=== PATIENT | female | born 1995 | race Caucasian/White ===

== ENCOUNTER 2020-10-01 22:14 | Emergency (ER) | payer BC, SELFPAY ==
--- NOTE | ~2020-10-01 | US_ITS ---
EXAMINATION: US OB <=14 wk fetus w TV EXAM DATE: 10/02/2020 01:10 INDICATION: Vaginal bleeding and cramps in 1st trimester. TECHNIQUE: Pelvic obstetrical transabdominal sonogram was performed by a technologist. There are mu ltiple grayscale and Doppler images available for interpretation. There are no earlier studies of th is gestation for comparison. FINDINGS: Uterus measures 5.8 x 3.5 x 6.0 intrauterine anechoic region probably an early gestation sa c, mean sac diameter of 5 mm corresponding to estimated gestational age 5 weeks 0 days. No pole identified at this time. There is no sonographic evidence of subchorionic hemorrhage. Corpus lute al cyst likely in the left ovary measuring 1.6 x 1.5 x 1.8 cm. Ovarian Doppler flow confirmed bilate rally. IMPRESSION: Early intrauterine gestation sac without pole identified at this time. Consider 1- 2 week follow-up exam. Reviewed, dictated and finalized at location A. [facility] IMPRESSION: Early intrauterine gestation sac without pole identified at this time. Consider 1-2 week follow-up exam.
[2020-10-01 22:20] VITALS: BP 145/79; PULSE 102; RESP 18; TEMP 35.8; O2SAT 100
--- NOTE | 2020-10-01 22:30 | ED.FEMALEGU ---
HPI - Female Genitourinary General Chief complaint: Urogenital-Female <Julien Garcia MD - Last Filed: 10/03/20 23:25> Stated complaint: spotting with <Julien Garcia MD - Last Filed: 10/03/20 23:25> Time Seen by Provider: 10/01/20 22:20 <Julien Garcia MD - Last Filed: 10/03/20 23:25> History of Present Illness HPI Narrative: 24 yo female presents to the ED for vaginal spotting. She reports that she had 3 positive tests last week. She had some cramping yesterday and today she began to have light spotting. No pain currently. Last period was on 08/27/2020. <Julien Garcia MD - Last Filed: 10/03/20 23:25> Related Data Home medications: Home Medications Medication Instructions Recorded Confirmed No Home Medications 10/01/20 <Julien Garcia MD - Last Filed: 10/03/20 23:25> Allergies/Adverse reactions: Allergies Allergy/AdvReac Type Severity Reaction Status Date / Time No Known Allergies Allergy Verified 10/01/20 22:21 <Julien Garcia MD - Last Filed: 10/03/20 23:25> Review of Systems Review of Systems: All systems reviewed & are unremarkable except as noted in HPI and below <Julien Garcia MD - Last Filed: 10/03/20 23:25> Constitutional: Constitutional: Denies chills <Julien Garcia MD - Last Filed: 10/03/20 23:25> Cardiovascular: Cardiovascular: Denies chest pain <Julien Garcia MD - Last Filed: 10/03/20 23:25> Respiratory: Respiratory: Denies dyspnea <Julien Garcia MD - Last Filed: 10/03/20 23:25> Gastrointestinal: Gastrointestinal: Denies abdominal pain, Denies nausea and Denies vomiting <Julien Garcia MD - Last Filed: 10/03/20 23:25> Genitourinary: Genitourinary: Denies nocturia, Denies dysuria and Denies vaginal discharge <Julien Garcia MD - Last Filed: 10/03/20 23:25> Musculoskeletal: Musculoskeletal: Denies back pain <Julien Garcia MD - Last Filed: 10/03/20 23:25> Neurologic: Denies numbness and Denies weakness <Julien Garcia MD - Last Filed: 10/03/20 23:25> Hematologic/Lymphatic: Hematologic/Lymphatic: Denies easy bleeding and Denies easy bruising <Julien Garcia MD - Last Filed: 10/03/20 23:25> [facility] Past Medical History Medical History: Medical History (Updated 10/03/20 @ 00:00 by Background Daemon) Healthy female adult <Julien Garcia MD - Last Filed: 10/03/20 23:25> Social History Social History: Social History Gender identity (if verbalized by the patient): Female Sexual Orientation (if Verbalized by the Patient): Straight or Heterosexual <Julien Garcia MD - Last Filed: 10/03/20 23:25> Exam Const: General: healthy appearing and alert <Julien Garcia MD - Last Filed: 10/03/20 23:25> Nutritional Appearance: obese <Julien Garcia MD - Last Filed: 10/03/20 23:25> Orientation/consciousness: patient oriented x3 <Julien Garcia MD - Last Filed: 10/03/20 23:25> HENMT: Head: normal to inspection <Julien Garcia MD - Last Filed: 10/03/20 23:25> Resp: Effort & Inspection: normal respiratory effort <Julien Garcia MD - Last Filed: 10/03/20 23:25> Auscultation: clear to auscultation bilaterally <Julien Garcia MD - Last Filed: 10/03/20 23:25> Cardio: Rate: regular rate <Julien Garcia MD - Last Filed: 10/03/20 23:25> Rhythm: regular rhythm <Julien Garcia MD - Last Filed: 10/03/20 23:25> GI: GI Palp: Yes Soft to palpation and No Tenderness to palpation present (GI) <Julien Garcia MD - Last Filed: 10/03/20 23:25> Skin: General skin exam: normal color <Julien Garcia MD - Last Filed: 10/03/20 23:25> Neuro: General: patient oriented x3, moves all extremities, no focal motor deficits and CN's II-XI intact bilaterally <Julien Garcia MD - Last Filed: 10/03/20 23:25> Speech: normal speech <Julien Garcia MD - Last Filed: 10/03/20 23:25> Extrem
[2020-10-01 22:56] LABS: Basophils Percent Auto 0.4 % (0.2-1.2); Eosinophils Absolute Auto 0.1 K/mm3 (0-0.3); Eosinophils Percent Auto 1.3 % (0-4.4); Hemoglobin 13.1 g/dL (12.0-15.0); Immature Granulocyte Absolute 0.03 K/mm3 (0.00-0.031); Immature Granulocyte Percent A 0.3 % (0-0.5); Lymphocytes Absolute Auto 2.96 K/mm3 (0.9-3.2); Lymphocytes Percent Auto 31.6 % (18.3-44.2); Mean Corpuscular HGB Conc 33.6 g/dl (32-36); Mean Corpuscular Hemoglobin 29.1 pg (26-34); Mean Corpuscular Volume 86.7 fl (80-100); Mean Platelet Volume 9.5 fl (7.4-10.4); Monocytes Absolute Auto 0.5 K/mm3 (0.1-0.6); Monocytes Percent Auto 5.6 % (2.6-8.5); Neutrophils Absolute Auto 5.7 K/mm3 (1.3-6.7); Neutrophils Percent Auto 60.8 % (45.5-73.1); Platelet Count Result 328 k/mm3 (150-375); Red Cell Distribution Width 13.2 % (11.5-14.5); White Blood Count 9.4 K/mm3 (4.5-10.0)
[2020-10-01 23:08] LABS: Anion Gap 8 mmol/L (8-16); Blood Urea Nitrogen 8 mg/dL (7-17); Calcium 9.2 mg/dL (8.4-10.2); Carbon Dioxide 24 mmol/L (22-30); Chloride 105 mmol/L (98-107); Estimated CRCL calculation 180 ml/min; Estimated Glomerular Filt Rate > 60; Glucose 107 mg/dL (65-105); Potassium 3.9 mmol/L (3.4-5.0); Sodium 137 mmol/L (137-145)
[2020-10-02 02:14] VITALS: BP 128/91; PULSE 82; RESP 16; TEMP 36.6; O2SAT 99
== END 2020-10-02 01:50 | disposition home or self-care (01) ==
PROVIDERS: Emergency Medicine; Emergency Provider Emergency Medicine
DX: O20.0 Threatened abortion (principal); Z3A.01 Less than 8 weeks gestation of pregnancy
CPT/HCPCS: 36415; 76801; 76817; 80048; 81025; 84702; 85025; 85461; 99284

== ENCOUNTER 2020-10-07 09:13 | Outpatient (CLI) | payer BC, SELFPAY | END 2020-10-07 09:14 | disposition home or self-care (01) | PROVIDERS: Visit Provider Obstetrics & Gynecology | DX: O20.0 Threatened abortion (principal); Z3A.00 Weeks of gestation of pregnancy not specified | CPT/HCPCS: 36415; 84702 ==

== ENCOUNTER 2020-10-16 23:01 | Emergency (ER) | payer BC, SELFPAY ==
--- NOTE | ~2020-10-16 | US_ITS ---
EXAMINATION: US OB <= 14 weeks fetus DATE: 10/17/2020 01:17 INDICATION: Vaginal bleeding during first trimester . TECHNIQUE: Real-time pelvic ultrasound utilizing both a transvaginal and transabdominal probe was pe rformed. The interpreting radiologist was not present for the study. COMPARISON: 10/02/2020 FINDINGS: The uterus measures 8.2 x 3.9 x 4.2 cm. The endometrial complex [id number] mm in thickness and appea rs heterogeneous with internal vascular flow on color Doppler. No intrauterine gestational sac identi fied although one was present at the time of the prior ultrasound. Findings would be consistent with failed and likely in progress with retained products of conception. The right ovar y measures 3.0 x 1.9 x 2.7 cm. The left ovary measures 3.9 x 1.8 x 1.8 cm. 12 mm anechoic left ovaria n cyst. Vascular flow is identified in both ovaries on color Doppler. There is no free fluid in the p jeremy. IMPRESSION: 1. Failed with previously seen intrauterine gestational sac no longer visualized. 2. Thickened heterogeneous endometrial complex with regions of internal flow on color Doppler within the endometrial complex consistent with retained products of conception. Reviewed, dictated and finalized at location A. [facility]
[2020-10-16 23:04] VITALS: BP 147/77; PULSE 99; RESP 20; TEMP 36.1; O2SAT 100
[2020-10-16 23:32] LABS: Basophils Absolute Auto 0.1 K/mm3 (0.0-0.1); Basophils Percent Auto 0.6 % (0.2-1.2); Eosinophils Absolute Auto 0.2 K/mm3 (0-0.3); Eosinophils Percent Auto 2.2 % (0-4.4); Hematocrit 45.2 % (37.0-47.0); Hemoglobin 14.4 g/dL (12.0-15.0); Immature Granulocyte Absolute 0.03 K/mm3 (0.00-0.031); Immature Granulocyte Percent A 0.3 % (0-0.5); Lymphocytes Absolute Auto 3.15 K/mm3 (0.9-3.2); Mean Corpuscular HGB Conc 31.9 g/dl (32-36); Mean Corpuscular Volume 90.9 fl (80-100); Mean Platelet Volume 9.9 fl (7.4-10.4); Monocytes Absolute Auto 0.5 K/mm3 (0.1-0.6); Neutrophils Absolute Auto 5.4 K/mm3 (1.3-6.7); Neutrophils Percent Auto 57.9 % (45.5-73.1); Platelet Count Result 274 k/mm3 (150-375); Red Blood Count 4.97 M/mm3 (4.2-5.4); Red Cell Distribution Width 13.2 % (11.5-14.5); White Blood Count 9.3 K/mm3 (4.5-10.0)
--- NOTE | 2020-10-17 00:04 | ED.GENADULT ---
HPI - General Adult General Chief complaint: Vaginal Bleeding Stated complaint: Spotting, 7-8 weeks preg. Time Seen by Provider: 10/16/20 23:56 Source: RN notes reviewed History of Present Illness HPI narrative: Patient presents emergency department from home for vaginal bleeding. Patient states she is approximately 78 weeks with last menstrual period in mid August states that she has been having some mild spotting for the last day and a half that turned to increased bleeding and cramping approximately 2 hours ago with large amount of clots passed patient states she took no medication for the symptoms she denies any fevers or chills chest pain shortness of breath or any other symptoms she is followed by Dr. Marcial amaya for [facility] [employer] patient is G1, P0 Related Data Home Medications Medication Instructions Recorded Confirmed No Home Medications 10/01/20 Allergies Allergy/AdvReac Type Severity Reaction Status Date / Time No Known Allergies Allergy Verified 10/16/20 23:08 Review of Systems Review of Systems: Narrative: Gen.: Denies fevers or chills ENT: Denies congestion Respiratory: Denies shortness of breath or cough CV: Denies chest pain or palpitations GI: Reports lower abdominal cramping denies nausea, emesis or diarrhea see HPI Musculoskeletal: Denies back pain or muscle pain Neuro: Denies numbness, tingling, weakness or focal weakness Skin: Denies rash Except as documented, all other systems reviewed and negative [facility] Past Medical History Medical History Healthy female adult Social History Social History (Updated 10/17/20 @ 00:05 by Fernando Bhandari DO) Smoking status: Never smoker Gender identity (if verbalized by the patient): Female Exam Narrative: Exam Narrative: APPEARANCE: No acute distress, nontoxic, resting in bed EYES: EOMI HEENT: Normocephalic, atraumatic, OMM RESPIRATORY: No respiratory distress Clear to auscultation bilaterally with no rhonchi wheezing or rales. CARDIOVASCULAR: Regular rate and rhythm without murmurs rubs or gallops. ABDOMINAL: Soft, nontender, nondistended, no rebound or guarding : Normal external exam, normal dark red blood clots in vaginal canal cervix is at 1 cm MUSCULOSKELETAl: Moves all extremities. NEURO: Awake and alert. Following commands, speech normal, no focal deficits SKIN:: Warm, dry. No rashes lesions or abrasions PSYCHIATRIC: Normal affect/mood, Course Course Emergency Course: Discussed with Dr. Madsen presentation work-up at this time recommends discharge with patient follow-up in the office on Monday Discussed with patient results of workup and diagnosis. Discussed need for follow-up with primary care, proper use of medication, and reasons to return to the emergency department. Patient understands and agrees to current treatment plan. Discussed with patient results of ultrasound and concern for miscarriage Vital Signs Vital signs: Vital Signs Temperature 96.9 F L 10/16/20 23:04 Pulse Rate 99 10/16/20 23:04 Respiratory Rate 20 10/16/20 23:04 Blood Pressure 147/77 H 10/16/20 23:04 Pulse Oximetry 100 10/16/20 23:04 Temperature 96.9 F L 10/17/20 00:49 Pulse Rate 93 10/17/20 01:46 Respiratory Rate 16 10/17/20 01:46 Blood Pressure 127/77 10/17/20 01:46 Pulse Oximetry 100 10/17/20 01:46 Medical Decision Making Vital Signs Vital Signs: Vital Signs Temperature 96.9 F L 10/16/20 23:04 Pulse Rate 99 10/16/20 23:04 Respiratory Rate 20 10/16/20 23:04 Blood Pressure 147/77 H 10/16/20 23:04 Pulse Oximetry 100 10/16/20 23:04 Temperature 96.9 F L 10/17/20 00:49 Pulse Rate 93 10/17/20 01:46 Respiratory Rate 16 10/17/20 01:46 Blood Pressure 127/77 10/17/20 01:46 Pulse Oximetry 100 10/17/20 01:46 Lab Data Result diagrams: 10/16/20 23:19 Labs: Lab Results 10/16/20 10/16/20 10/16/20 Range/Units 23
[2020-10-17] MEDS: SODIUM CHLORIDE 0.9% IV 1,000 ML 999 ML IV CONT (00:19)
[2020-10-17 00:49] VITALS: TEMP 36.1
[2020-10-17 01:43] VITALS: BP 111/66; PULSE 96; RESP 16; O2SAT 99
[2020-10-17 01:46] VITALS: BP 127/77; PULSE 93; RESP 16; O2SAT 100
[2020-10-17 02:40] VITALS: BP 125/79; PULSE 91; RESP 14; TEMP 36.5; O2SAT 95
== END 2020-10-17 02:42 | disposition home or self-care (01) ==
PROVIDERS: Emergency Provider Emergency Medicine
DX: O03.9 Complete or unspecified spontaneous abortion without complication (principal)
CPT/HCPCS: 36415; 76801; 84702; 85025; 85461; 96361; 96374; 99284; J0131; J7030

== ENCOUNTER 2020-12-18 20:49 | Emergency (ER) | payer BC, SELFPAY ==
[2020-12-18 20:51] VITALS: BP 141/74; PULSE 90; RESP 20; TEMP 36.3; O2SAT 100
--- NOTE | 2020-12-18 21:20 | ED.NECK ---
HPI - Neck Pain/Injury General Chief Complaint: Neck Pain/Injury Stated Complaint: neck pain Time Seen by Provider: 12/18/20 20:58 Source: patient Mode of arrival: ambulatory Limitations: no limitations History of Present Illness HPI Narrative: 25-year-old female Complains of neck pain for about a week She does not recall doing anything specific which might of injured it She just noticed that it was sore one day after work She reports some shooting pain into the back of her shoulders and arms with some neck movements, more so on the right side There is not any numbness or weakness No fever, no sore throat, no headache nothing like that She was in contact with her primary care office in [place] and on Monday was prescribed Flexeril which she has been taking with Tylenol or ibuprofen but continues to be symptomatic Related Data Home Medications Medication Instructions Recorded Confirmed cyclobenzaprine mg 12/18/20 drospirenone-ethinyl estradiol tablet 12/18/20 Allergies Allergy/AdvReac Type Severity Reaction Status Date / Time No Known Allergies Allergy Verified 12/18/20 21:02 Review of Systems Review of Systems: All systems reviewed & are unremarkable except as noted in HPI and below Constitutional: Constitutional: Denies fever(s), Denies headache(s) and Denies weakness ENT: Denies headache(s) and Denies sore throat Cardiovascular: Cardiovascular: Denies chest pain, Denies leg edema, Denies palpitations and Denies dyspnea Respiratory: Respiratory: Denies cough and Denies dyspnea Gastrointestinal: Gastrointestinal: Denies nausea Genitourinary: Genitourinary: Denies urinary frequency Musculoskeletal: Musculoskeletal: Reports back pain, Denies deformity, Denies arthralgias, Denies joint swelling, Denies muscle weakness and Denies numbness Integumentary/Breasts: Skin/Breast: Denies wounds Neurologic: Denies headache(s), Denies focal weakness, Denies numbness and Denies weakness Endocrine: Endocrine: Denies palpitations PMFSH Past Medical History Medical History Healthy female adult Social History Social History (Updated 10/17/20 @ 00:05 by Fernando Bhandari DO) Smoking status: Never smoker Gender identity (if verbalized by the patient): Female Exam Const: General: no acute distress, well developed, alert and awake Nutritional Appearance: obese Orientation/consciousness: patient oriented x3 (alert) Limitations: no limitations HENMT: Head: normal to inspection, normocephalic and atraumatic Ears: external ears normal General nose exam: No nasal discharge present and no epistaxis Face and sinus: face symmetric Eyes: Conjunctivae: conjunctivae normal Sclera: sclerae normal EOM: EOMs intact bilaterally Neck: Neck: normal visual inspection, no lymphadenopathy, supple and no JVD Other: There is slight limitation of motion due to pain when flexing laterally to the right or rotating to the left There is a positive Spurling test There is no vertebral tenderness and not much in the way of localized muscle tenderness or trigger points Chest: Chest palpation & inspection: deferred Resp: Effort & Inspection: normal respiratory effort and not labored Auscultation: other (BS =) Cardio: Heart sounds: no gallops GI: Inspection: normal to inspection Back/Spine/Pelvis: Thoracic/Lumbar Spine: thoracic and lumbar spine normal to inspection Skin: General skin exam: normal color and no rashes or lesions noted Rashes: no rashes Neuro: General: patient oriented x3 (alert), moves all extremities and no focal motor deficits Cranial nerves: Yes facial symmetry Speech: normal speech Other: Normal strength bilaterally and shoulder shrug, arm abduction, marketing agent Normal sensation to light touch bilaterally in the radial and ulnar nerve distributions Extrem: General: full ROM Psych: Affect: normal affect Course Vital Signs V
[2020-12-18 21:57] VITALS: BP 135/73; PULSE 85; RESP 16; O2SAT 98
== END 2020-12-18 21:58 | disposition home or self-care (01) ==
PROVIDERS: Emergency Provider Emergency Medicine
DX: M54.12 Radiculopathy, cervical region (principal)
CPT/HCPCS: 99283

== ENCOUNTER 2020-12-28 19:38 | Emergency (ER) | payer BC, SELFPAY ==
[2020-12-28 20:03] VITALS: BP 144/86; PULSE 95; RESP 16; TEMP 37.2; O2SAT 96
--- NOTE | 2020-12-28 21:48 | ED.GENADULT ---
HPI - General Adult General Chief complaint: Upper Respiratory Infection Stated complaint: cough congestion, ear pain, throat pain Time Seen by Provider: 12/28/20 21:47 History of Present Illness HPI narrative: Patient a 25-year-old female that presents the emergency department with chief complaint of cough nasal congestion and right ear pain. The patient reports that her mother was diagnosed with influenza several days ago and that now she has had a cough that has been productive she is also had some nasal congestion and reports that she started having pain in her ears states that her right ear feels full. The patient reports that she has had other relatives that also have ear infections currently. Related Data Home Medications Medication Instructions Recorded Confirmed cyclobenzaprine mg 12/18/20 drospirenone-ethinyl estradiol tablet 12/18/20 Allergies Allergy/AdvReac Type Severity Reaction Status Date / Time No Known Allergies Allergy Verified 12/18/20 21:02 Review of Systems Review of Systems: Narrative: A 10 system review of systems was completed on the patient and is negative except for what is stated in the HPI. Nursing and ancillary documentation was reviewed. PMFSH Past Medical History Medical History Healthy female adult Social History Social History Smoking status: Never smoker Gender identity (if verbalized by the patient): Female Exam Narrative: Exam Narrative: GENERAL: Well-appearing, well-nourished, and in no acute distress. HEAD: Normocephalic, atraumatic. EYES: PERRLA and EOMI. ENT: Nares clear, no rhinorrhea or epistaxis. Mucous membranes moist. Right tympanic membrane shows a effusion slight erythema NECK: Supple. CHEST: Clear to auscultation. No respiratory distress. HEART: Regular rate and rhythm. No murmur heard. Normal peripheral pulses. ABDOMEN: Soft, nontender, nondistended, normal active bowel sounds. EXTREMITIES: Normal range of motion. No edema. SKIN: Warm, dry, no rash. NEURO: No focal deficits. Alert and oriented x3. PSYCH: Normal mood and affect. Course Vital Signs Vital signs: Vital Signs Temperature 37.2 C 12/28/20 20:03 Pulse Rate 95 12/28/20 20:03 Respiratory Rate 16 12/28/20 20:03 Blood Pressure 144/86 H 12/28/20 20:03 Pulse Oximetry 96 12/28/20 20:03 Temperature 37.2 C 12/28/20 20:03 Pulse Rate 95 12/28/20 20:03 Respiratory Rate 16 12/28/20 20:03 Blood Pressure 144/86 H 12/28/20 20:03 Pulse Oximetry 96 12/28/20 20:03 Medical Decision Making Vital Signs Vital Signs: Vital Signs Temperature 37.2 C 12/28/20 20:03 Pulse Rate 95 12/28/20 20:03 Respiratory Rate 16 12/28/20 20:03 Blood Pressure 144/86 H 12/28/20 20:03 Pulse Oximetry 96 12/28/20 20:03 Temperature 37.2 C 12/28/20 20:03 Pulse Rate 95 12/28/20 20:03 Respiratory Rate 16 12/28/20 20:03 Blood Pressure 144/86 H 12/28/20 20:03 Pulse Oximetry 96 12/28/20 20:03 Lab Data Labs: Influenza A Screen Negative Reference Range: Negative Influenza B Screen Negative Reference Range: Negative Strep Screen Presumptive Negative *(Reference Range: Negative)* Discharge Plan Discharge Clinical Impression: Upper respiratory infection Qualifiers: URI type: unspecified URI Qualified Code(s): J06.9 - Acute upper respiratory infection, unspecified Otitis media Qualifiers: Otitis media type: unspecified Laterality: right Qualified Code(s): H66.91 - Otitis media, unspecified, right ear Patient Disposition: Home, Self-Care Condition: Stable Instructions: Antibiotic Form, Ear Infection (ED), Upper Respiratory Infection (ED) Ad
[2020-12-28] MEDS: BENZONATATE 100 MG CAPSULE 200 MG PO (22:21)
[2020-12-28] MEDS: AMOXICILLIN/CLAVULANATE K 875-125 MG TAB 1 TABLET PO (22:21)
[2020-12-29 18:07] LABS: SARS-CoV-2 RNA PCR Negative
== END 2020-12-28 22:42 | disposition home or self-care (01) ==
LOC: ANHED 21:55
PROVIDERS: Emergency Provider Emergency Medicine
DX: J06.9 Acute upper respiratory infection, unspecified (principal); H66.91 Otitis media, unspecified, right ear; Z20.822 Contact with and (suspected) exposure to COVID-19
CPT/HCPCS: 87081; 87804; 87880; 99283; A9270; C9803; U0003; U0005

== ENCOUNTER 2021-04-28 10:10 | Outpatient (RCR) | payer BC, SELFPAY ==
--- NOTE | 2021-04-28 16:13 | PTOPEVAL ---
Thank you for referring Alma Delia Álvarez to [facility].? The patient is scheduled to be seen for therapy? 1 x/week for 5 weeks. Please review, sign, date and return this plan of care SHALOM. I agree with and certify that the following plan of care is medically necessary. Referring Physician Date Attending Provider: Kumar Gill Diagnosis neck pain Onset 12/27 Additional Evaluation Detail She was given a muscle relaxer, but did not help. She went to ED, given a steroid but couldn't take. Taking OTC medication with min relief. nerve conduction test planned for Jun 29. She was going to the gym for walking, resistance ex and use of the pool. She has not returned to the gym since the injury. 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 Subjective Information She was helping someone out of Query Text:As Reported By Patient/ bed when the person pulled on Family her neck. She reports increased pain with all activities due to pain which radiating into jose martin UE. She is unable to sleep due to pain. She requires assistance with ADL's for reaching and overhead motion. Unable to perform repeatative activities of UE. She has a history of migraine headache. She only has pain from elbows to hands. No activities improve her symptoms. She c/o dropping objects from hands Diagnostic Tests X-Rays For This Problem Yes: no impairment noted Pain Assessment Neck Reported Pain Level 7 Pain Description Numbness,Radiating,Sharp, Shooting,Tingling Pain Radiation Left Arm,Right Arm Pain Frequency Continuous Lowest Pain Intensity 4 Greatest Pain Intensity 9 Pain Aggravating Factors ADL's,Exercise/Activity, Prolonged Position Pain Behaviors Anxious Cervical and Lumbar ROM Cervical ROM Cervical Flexion (0-60) 50:Active in Degrees
--- NOTE | 2021-05-06 14:38 | PCPTNOTE ---
Patient called & cancelled scheduled appointment this date due to no reason provided.
--- NOTE | 2021-05-13 16:31 | PCPTNOTE ---
Patient did not show up for scheduled appointment this date; called and left voicemail for reminder on next appointment 05/20 @ 2:45pm.
--- NOTE | 2021-05-20 16:37 | PCPTNOTE ---
Patient did not show up for scheduled appointment this date; called and left voicemail on discharging due to policy with 1 cancellation and 2 no shows. Notified PT who was is agreeably.
--- NOTE | 2021-05-24 09:06 | PCPTNOTE ---
Admitting Provider: Attending Provider: Kumar Gill Patient:Alma Delia Álvarez Date of :1995 Discharge Note Patient has not returned for any further treatments since initial evaluation 04/28/2021, therefore she will be discharged at this time. Patient?s initial visit was on 04/28/2021 and she had a total of 1 visits with 3 cancelled/no show visits. The goals have been not met due to no follow up visits. Thank you for referring this patient to [facility]. Please review, sign, date and return this discharge summary SHALOM. I have been updated about the patient's current status and I agree with discharge from the above service at this time. Referring Physician Date
== END 2021-05-25 14:22 | disposition home or self-care (01) ==
LOC: ANHPT 10:10
DX: M54.2 Cervicalgia (principal)
CPT/HCPCS: 97110; 97162

== ENCOUNTER 2022-07-24 23:27 | Emergency (ER) | payer BC, SELFPAY ==
[2022-07-24 23:39] VITALS: BP 147/90; PULSE 96; RESP 18; TEMP 37; O2SAT 99
--- NOTE | 2022-07-25 01:32 | ED.EYEPROB ---
HPI - Eye Problem General Chief complaint: Eye Problems Stated complaint: left eye infection Time Seen by Provider: 07/25/22 00:52 History of Present Illness HPI Narrative: 26-year-old female presents to the emergency room for evaluation of swelling, redness and purulent drainage to the left eye. Patient was seen in urgent care 3 days ago for the same symptoms and was diagnosed with conjunctivitis. Patient started on polymyxin eyedrops at that time. Patient states the following day she began to experience swelling to her eyelid and pain around her eye. She immediately became Related Data Home Medications Medication Instructions Recorded Confirmed cyclobenzaprine 10 mg tablet mg 12/18/20 drospirenone 3 mg-ethinyl tablet 12/18/20 estradiol 0.03 mg tablet Allergies Allergy/AdvReac Type Severity Reaction Status Date / Time No Known Allergies Allergy Verified 07/24/22 23:38 Review of Systems Review of Systems: CONSTITUTIONAL: Denies fever, chills, or sweats. EYES: Reports redness and discharge. ENT: Denies rhinorrhea, congestion, sore throat, or otalgia. CARDIOVASCULAR: Denies chest pain, palpitations, or edema. RESPIRATORY: Denies cough or dyspnea. GASTROINTESTINAL: Denies abdominal pain, nausea, vomiting, or diarrhea. GENITOURINARY: Denies dysuria or hematuria. SKIN: Denies rash or itching. MUSCULOSKELETAL: Denies back pain, joint pain, or myalgia. NEUROLOGIC: Denies headache, numbness, dizziness, or weakness. PSYCHIATRIC: Denies anxiety or depression. PMFSH Past Medical History Medical History Healthy female adult Social History Social History Smoking status: Never smoker Gender identity (if verbalized by the patient): Female Sexual Orientation (if Verbalized by the Patient): Straight or Heterosexual Exam Narrative: GENERAL: Well-appearing, well-nourished, no physical limitations, and in no acute distress. HEAD: Normocephalic, atraumatic. EYES: Erythematous conjunctivae left eye with upper eyelid swelling and purulent drainage PERRLA and EOMI. CHEST: Clear to auscultation. No respiratory distress. No wheezes rales or rhonchi. No tenderness. HEART: Regular rate and rhythm. No murmur heard. Normal peripheral pulses. BACK: No CVA tenderness; No cervical/thoracic/lumbar tenderness, step-offs, bony abnormality; FROM EXTREMITIES: Normal range of motion. No edema. No clubbing or cyanosis SKIN: Warm, dry, no rash. No noted wounds NEURO: No focal deficits. Alert and oriented x3. MAEW. CN's II-XI intact bilaterally, normal gait PSYCH: Cooperative. Normal mood and affect. Course Vital Signs Vital signs: Vital Signs Temperature 37.0 C 07/24/22 23:39 Pulse Rate 96 07/24/22 23:39 Respiratory Rate 18 07/24/22 23:39 Blood Pressure 147/90 H 07/24/22 23:39 Pulse Oximetry 99 07/24/22 23:39 Oxygen Delivery Room Air 07/24/22 23:39 Temperature 37.0 C 07/24/22 23:39 Pulse Rate 96 07/24/22 23:39 Respiratory Rate 18 07/24/22 23:39 Blood Pressure 147/90 H 07/24/22 23:39 Pulse Oximetry 99 07/24/22 23:39 Oxygen Delivery Room Air 07/24/22 23:39 Discharge Plan Discharge Clinical Impression: Bacterial conjunctivitis Patient Disposition: Home, Self-Care Condition: Stable Instructions: Antibiotic Form, Conjunctivitis (ED) Prescriptions: New erythromycin 5 mg/gram (0.5 %) ointment 1 applic LEFT EYE DAILY Qty: 3.5 0RF No Action cyclobenzaprine 10 mg tablet drospirenone-ethinyl estradiol 3-0.03 mg tablet methylprednisolone [Medrol (Diego)] 4 mg tablets,dose pack See Rx Instructions .ROUTE .COMPLEX Qty: 21 0RF Rx Instructions: orally per package directions amoxicillin-pot clavulanate [Augmentin] 875-125 mg tablet 1 tablet PO Q12H Qty: 20 0RF benzonatate 200 mg capsule 200 mg PO TID PRN (Reason:
== END 2022-07-25 01:46 | disposition home or self-care (01) ==
PROVIDERS: Emergency Provider Nurse Practitioner Family; PCP Physician Assistant
DX: H10.9 Unspecified conjunctivitis (principal)
CPT/HCPCS: 99283